=== PATIENT | female | born 1980 | race Asian ===

== ENCOUNTER 2016-07-16 14:32 | Inpatient (IN) | payer MEDICAID ==
[~2016-07-16] VITALS: Ht 177.8 cm; Wt 85.3 kg
[~2016-07-16 14:32] MED LIST: DEXAMETHASONE SOD PHOSPHATE 4 MG/ML VIAL ONE; KETOROLAC TROMETHAMINE 30 MG VIAL ONE; LR 1,000 ML IV.SOLN IV ONE; MIDAZOLAM HCL 5 MG/5 ML VIAL ONE; MULT PO; NS IRRIG SOLN 1000 ML IR ONE; ONDANSETRON HCL 4 MG/2 ML VIAL ONE; PROPOFOL 200MG/ 20ML VIAL (DIPRIVAN) IV ONE; ROCURONIUM BROMIDE 10 MG/ML (ZEMURON) ONE; SEVOFLURANE 15 MIN GAS INH ONE; fentaNYL CITRATE 250 MCG/5 ML AMP ONE
--- NOTE | 2016-07-16 15:24 | NUR ---
Called pt.'s name. Pt not in ER waiting room.
--- NOTE | 2016-07-16 15:48 | NUR ---
Pt's name called x 3. No where to be found. Pt LWBS.
[2016-07-16 17:09] VITALS: BP 130/80; PULSE 86; RESP 14; TEMP 98.9; O2SAT 100
[2016-07-16 17:43] LABS: BILIRUBIN,URINE NEGATIVE (NEGATIVE); BLOOD, URINE 3+ (NEGATIVE); CLARITY/URINE HAZY (CLEAR); COLOR,URINE YELLOW (YELLOW); GLUCOSE,URINE NEGATIVE (NEGATIVE); KETONES,URINE NEGATIVE (NEGATIVE); LEUKOCYTE ESTERASE ,URINE NEGATIVE (NEGATIVE); NITRITE, URINE NEGATIVE (NEGATIVE); PROTEIN URINE NEGATIVE (NEGATIVE); UROBILINOGEN,URINE 0.2 (0.2-1.0)
[2016-07-16 17:52] LABS: BACTERIA,URINE MANY /HPF (None Seen)
[2016-07-16 17:56] LABS: BASOPHILS % (AUTO) 0.4 % (0.0-2.0); EOSINOPHILS # (AUTO) 0.2 K/uL (0.0-0.4); EOSINOPHILS % (AUTO) 1.9 % (0.0-4.0); HEMATOCRIT 32.6 % (36-48); HEMOGLOBIN 10.6 g/dL (12.0-16.0); LYMPHOCYTES # (AUTO) 1.3 K/uL (1.0-5.5); LYMPHOCYTES % (AUTO) 11.5 % (20.5-51.5); MEAN CORPUSCULAR HEMOGLOBIN 24 pg (27-31); MEAN CORPUSCULAR HGB CONC 33 % (32-36); MEAN CORPUSCULAR VOLUME 73 fL (79.0-98.0); MONOCYTES # (AUTO) 0.6 K/uL (0.0-1.0); MONOCYTES % (AUTO) 5.1 % (1.7-9.3); NEUTROPHILS # (AUTO) 9.1 K/uL (1.8-7.7); NEUTROPHILS % (AUTO) 81.1 % (40.0-70.0); PLATELET COUNT (AUTO) 278 K/uL (130-430); RED BLOOD CELL COUNT(AUTO) 4.48 MIL/uL (4.2-6.2); RED CELL DISTRIBUTION WIDTH 15.9 % (9.0-15.0); WHITE BLOOD COUNT (AUTO) 11.2 K/uL (4.8-10.8)
[2016-07-16 18:05] LABS: CALCIUM 8.7 mg/dL (8.4-11.0); CREATININE 0.82 mg/dL (0.55-1.30); POTASSIUM 3.7 mmol/L (3.5-5.1)
[2016-07-16 18:16] LABS: INR 0.9 (0.8-1.2)
[2016-07-16 18:38] LABS: ALBUMIN 3.8 g/dL (3.4-4.8); TOTAL BILIRUBIN 0.3 mg/dL (0.0-1.0); TOTAL PROTEIN, SERUM 7.2 g/dL (6.4-8.3)
--- NOTE | 2016-07-16 20:15 | NUR ---
Patient to ER bed 7 to gown for evaluation. Side rails up. Report given to HAN Melo.
--- NOTE | 2016-07-16 20:30 | NUR ---
Pt brought in by boyfriend in stable condition. Pt c/o vaginal bleeding w/ large clots and is 8 wks . Pt stated that she was at [facility] yesterday and they called her today stating that she was 8 wks and there was no heart beat. Pt stated that she has an appt for D&C on Friday but could not wait due to the bleeding and cramping. +N -V/D -sob -chest pain. No acute distress noted at this time, will continue to monitor
--- NOTE | 2016-07-16 20:44 | NUR ---
ER at bedside examining patient.
[2016-07-16] MEDS ORDERED: ONDANSETRON HCL 4 MG/2 ML VIAL IVP PRN (22:00)
[2016-07-16] MEDS ORDERED: ACETAMINOPHEN 325 MG TABLET PO PRN (22:00)
[2016-07-16] MEDS ORDERED: LR 1,000 ML IV SCH (22:00)
--- NOTE | 2016-07-16 22:14 | NUR ---
Patient will be admitted to care of . Admitted to MED SURG unit. Will go to room 127-A. Belongings list completed. Summary report printed. Report given to HAN [place].
--- NOTE | 2016-07-16 22:16 | NUR ---
ADMISSION NOTE Received patient from ER via ngoc, received report from Lorie RN. Patient admitted with diagnosis of vaginal bleed. Patient oriented to hospital routine, call light, toileting and safety-patient verbalized understanding.
[2016-07-16 22:21] VITALS: BP 126/70; PULSE 71; RESP 17; TEMP 98.4; O2SAT 98
--- NOTE | 2016-07-16 22:30 | NUR ---
OPENING NOTES PATIENT IS A/OX4. NO SIGNS OF DISTRESS. BREATHING IS NON LABORED. VITAL SIGNS ARE STABLE. IV IS PATENT AND SHOWS NO SIGNS OF COMPLICATIONS. PATIENT INSTRUCTED TO CALL FOR ASSISTANCE. CALL LIGHT IS WITH IN REACH. SAFETY MEASURES ARE IN PLACE. WILL CONTINUER TO MONITOR. PATIENT WALKED TO THE RESTROOM. GAIT IS STEADY.
[2016-07-16] MEDS ORDERED: MORPHINE 4 MG/ML INJ. SYRINGE IVP PRN (22:45)
--- NOTE | 2016-07-16 22:45 | NUR ---
EDUCATION PATIENT WAS EDUCATED ON NPO AFTER MIDNIGHT STATUS. PATIENT VERBALIZED UNDERSTANDING.
[2016-07-16] MEDS ORDERED: HYDROcodone/ACETAMIN 5-325 MG TAB (NORCO/ VICODIN) PO PRN (23:00)
--- NOTE | 2016-07-16 23:20 | NUR ---
DR. DARYA BRICE
[2016-07-16] MEDS ORDERED: ALBUTEROL MDI INHALATION 8 GM INH INH PRN (23:30)
[2016-07-16] MEDS ORDERED: ALBUTEROL SULFATE 0.083% 2.5 MG/3 ML VIAL.NEB INH PRN (23:30)
[2016-07-16] MEDS ORDERED: ALPRAZolam 0.25 MG TABLET PO PRN (23:30)
[2016-07-16] MEDS ORDERED: TEMAZEPAM 15 MG CAPSULE PO PRN (23:30)
[2016-07-16 23:45] VITALS: BP 125/63; PULSE 63; RESP 15; TEMP 98.9; O2SAT 100
[2016-07-17 00:30] VITALS: BP 130/80; PULSE 86
--- NOTE | 2016-07-17 00:58 | NUR ---
ROUNDS PATIENT WAS GIVEN MAXI PADS AND KNIT UNDERWEAR.
--- NOTE | 2016-07-17 02:00 | NUR ---
ROUNDS PATIENT IS IN BED WATCHING TV. BOY FRIEND IS AT BEDSIDE. NO SIGNS OF DISTRESS. BREATHING IS NON LABORED. SAFETY MEASURES ARE IN PLACE. CALL LIGHT IS WITHIN REACH. WILL CONTINUE TO MONITOR.
--- NOTE | 2016-07-17 04:08 | NUR ---
ROUNDS PATIENT IS IN BED SLEEPING. NO SIGNS OF DISTRESS. BREATHING IS NON LABORED.BOY FRIEND IS AT BEDSIDE. CALL LIGHT IS WITHIN REACH. SAFETY MEASURES ARE IN PLACE. WILL CONTINUE TO MONITOR.
[2016-07-17 04:15] VITALS: BP 121/72; PULSE 65; RESP 17; TEMP 98.8; O2SAT 99
--- NOTE | 2016-07-17 06:32 | NUR ---
CLOSING NOTES PATIENT IS IN BED SLEEPING. NO SIGNS OF DISTRESS. BREATHING IS NON LABORED. IV IS PATENT AND SHOWS NO SIGNS OF COMPLICATIONS. BOYFRIEND IS AT BEDSIDE. SAFETY MEASURES ARE IN PLACE. CALL LIGHT IS WITHIN REACH. WILL ENDORSE CARE TO THE MORNING NURSE.
[2016-07-17 06:36] LABS: IRON (SERUM) 42 mcg/dL (37-145)
[2016-07-17 06:37] LABS: TOTAL IRON BIND. CAPACITY 341 ug/dL (250-450)
[2016-07-17 06:46] LABS: ALBUMIN 3.1 g/dL (3.4-4.8); CALCIUM 8.5 mg/dL (8.4-11.0); CREATININE 0.68 mg/dL (0.55-1.30); POTASSIUM 3.7 mmol/L (3.5-5.1); TOTAL BILIRUBIN 0.1 mg/dL (0.0-1.0); TOTAL PROTEIN, SERUM 6.2 g/dL (6.4-8.3)
[2016-07-17 06:53] LABS: BASOPHILS # (AUTO) 0.1 K/uL (0.0-0.2); BASOPHILS % (AUTO) 0.6 % (0.0-2.0); EOSINOPHILS # (AUTO) 0.4 K/uL (0.0-0.4); EOSINOPHILS % (AUTO) 3.5 % (0.0-4.0); HEMATOCRIT 30.5 % (36-48); HEMOGLOBIN 9.6 g/dL (12.0-16.0); LYMPHOCYTES # (AUTO) 1.9 K/uL (1.0-5.5); LYMPHOCYTES % (AUTO) 17.2 % (20.5-51.5); MEAN CORPUSCULAR HEMOGLOBIN 23 pg (27-31); MEAN CORPUSCULAR HGB CONC 31 % (32-36); MEAN CORPUSCULAR VOLUME 73 fL (79.0-98.0); MONOCYTES # (AUTO) 0.8 K/uL (0.0-1.0); MONOCYTES % (AUTO) 7.6 % (1.7-9.3); NEUTROPHILS # (AUTO) 7.6 K/uL (1.8-7.7); NEUTROPHILS % (AUTO) 71.1 % (40.0-70.0); PLATELET COUNT (AUTO) 274 K/uL (130-430); RED BLOOD CELL COUNT(AUTO) 4.17 MIL/uL (4.2-6.2); RED CELL DISTRIBUTION WIDTH 16.1 % (9.0-15.0); WHITE BLOOD COUNT (AUTO) 10.8 K/uL (4.8-10.8)
--- NOTE | 2016-07-17 07:20 | NUR ---
initial notes: pt on bed sleeping with at bedside. i.v. access patent. call light within reach. report received at bedside.
[2016-07-17] MEDS ORDERED: MULTIVITAMINS TAB 1 TABLET PO SCH (09:00)
--- NOTE | 2016-07-17 10:00 | NUR ---
consent: D&C consent signed by patient.
--- NOTE | 2016-07-17 10:30 | NUR ---
Transfer to O.R. pt wheeled via hospital bed to O.R. by staff.
[2016-07-17] MEDS ORDERED: LR 1,000 ML IV SCH (11:23)
[2016-07-17 11:28] VITALS: BP 106/54; PULSE 62; RESP 19; TEMP 97.2; O2SAT 96
[2016-07-17] MEDS ORDERED: MEPERIDINE HCL/PF 25 MG/ML DISP.SYRIN IVP PRN (11:30)
[2016-07-17] MEDS ORDERED: HYDROmorphone 1 MG INJ. 1 MG/ML AMPUL IVP PRN (11:30)
[2016-07-17] MEDS ORDERED: HYDROmorphone 2 MG/ML VIAL IVP PRN ×2 (11:30)
[2016-07-17] MEDS ORDERED: MEPERIDINE HCL/PF 25 MG/ML DISP.SYRIN IM PRN (11:45)
[2016-07-17] MEDS ORDERED: ONDANSETRON HCL 4 MG/2 ML VIAL IVP PRN (11:45)
[2016-07-17] MEDS ORDERED: MEPERIDINE HCL/PF 50 MG/ML AMP IM PRN (11:45)
--- NOTE | 2016-07-17 12:10 | NUR ---
ROOM: PT back in her room. alert, awake and oriented.
[2016-07-17 12:44] VITALS: BP 119/73; PULSE 67; RESP 16; TEMP 97.3; O2SAT 99
[2016-07-17 14:10] VITALS: BP_SYST 106; BP_SYST 121; BP_DIAS 54; BP_DIAS 61; PULSE 54; PULSE 71; RESP 16; RESP 19; TEMP 106; TEMP 97.2; O2SAT 96; O2SAT 98
--- NOTE | 2016-07-17 15:00 | NUR ---
rounds: pt sleeping. no distress noted.
[2016-07-17 15:40] VITALS: BP 116/60; PULSE 76; RESP 19; TEMP 97.2; O2SAT 99
--- NOTE | 2016-07-17 17:26 | NUR ---
D/C Patient Patient given medication reconciliation form and D/C instructions. Exit Care provided. Patient verbalized understanding. MD discussed with patient the results and treatment provided. Ambulatory with steady gait for discharge to home. Patient in stable condition, ID band removed. IV catheter removed, intact and dressing applied, no active bleeding. Rx given. Patient educated on pain management. All belongings sent with patient.
== END 2016-07-17 17:30 | disposition home or self-care (01) | DRG 544 ==
LOC: SED 14:32 → SMU 21:59
PROVIDERS: ADMIT Internal Medicine; ATTEND Internal Medicine
PROC: 10D17ZZ Extraction of Products of Conception, Retained, Via Natural or Artificial Opening (ICD-10-PCS; principal; 2016-07-17 10:30)
DX: O02.1 Missed abortion (principal); D64.9 Anemia, unspecified; F17.200 Nicotine dependence, unspecified, uncomplicated; F41.9 Anxiety disorder, unspecified; J45.909 Unspecified asthma, uncomplicated; Z88.6 Allergy status to analgesic agent; Z88.0 Allergy status to penicillin; Z79.899 Other long term (current) drug therapy
CPT/HCPCS: 36415; 76801; 76817; 80053; 81000-TC; 81025; 83540-TC; 83550-TC; 84702-TC; 85025; 85610-TC; 85730-TC; 86886; 86900; 86901; 87081; 87086; 88305; 99285; J1100; J1885; J2250; J2405; J2704; J3010; J7120